=== PATIENT | female | born 1995 | race Caucasian/White ===

== ENCOUNTER 2020-04-05 21:32 | Emergency (ER) | payer SELFPAY ==
[~2020-04-05] VITALS: Ht 160 cm; Wt 79.5 kg
[2020-04-05 21:38] VITALS: Ht 160 cm; Wt 79.5 kg
[2020-04-05 22:31] VITALS: BP 128/82
== END 2020-04-05 22:32 | disposition home or self-care (01) ==
LOC: D.ER 21:32
DX: Z71.1 Person with feared health complaint in whom no diagnosis is made (principal); W46.1XXA Contact with contaminated hypodermic needle, initial encounter

== ENCOUNTER 2020-04-16 21:46 | Emergency (ER) | payer SELFPAY ==
[~2020-04-16] VITALS: Ht 160 cm; Wt 70.9 kg
[2020-04-16 21:54] VITALS: Ht 160 cm; Wt 70.9 kg
[2020-04-16 22:12] LABS: BASOPHILS 0.3 % (0-2); EOSINOPHILS 1.6 % (0-7); HEMATOCRIT 37.9 % (36.0-48.0); HEMOGLOBIN 12.8 g/dL (12-16); IMMATURE GRANULOCYTES 0.1 % (0-5); LYMPHOCYTES 16.5 % (15-50); MCH 30.3 pg (26.0-34.0); MCHC 33.8 g/dL (31.0-37.0); MCV 89.6 fL (80.0-100.0); MEAN PLATELET VOLUME 9.1 fL (7.4-10.4); MONOCYTES 6.6 % (2-11); NEUTROPHILS 74.9 % (40-80); PLATELET COUNT 244 10x3/uL (130-400); RBC 4.23 10x6/uL (4.00-5.40); RDW 12.8 % (11.5-14.5); WBC 7.4 10x3/uL (4.8-10.8)
[2020-04-16 22:27] LABS: HCG SERUM NEGATIVE (NEGATIVE)
[2020-04-16 22:30] LABS: AMYLASE - SERUM 46 U/L (25-115); LIPASE 120 U/L (73-393)
[2020-04-16 22:34] LABS: TROPONIN-I < 0.017 ng/mL (0.000-0.060)
[2020-04-16 23:14] LABS: ALBUMIN 3.8 g/dL (3.4-5.0); ALKALINE PHOSPHATASE 78 U/L (30-120); ALT (SGPT) 43 U/L (10-68); CALC OSMOLALITY 274 mosm/kg (275-300); CALCIUM 8.8 mg/dL (8.5-10.1); CARBON DIOXIDE 24.5 mmol/L (21.0-32.0); CHLORIDE - SERUM 104 mmol/L (98-107); CREATININE - SERUM 0.8 mg/dL (0.6-1.3); GLUCOSE 91 mg/dL (74-106); POTASSIUM - SERUM 3.2 mmol/L (3.5-5.1); PROTEIN - SERUM 7.1 g/dL (6.4-8.2); SODIUM 138 mmol/L (136-145); UREA NITROGEN 9 mg/dL (7-18); eGFR NON AFRICAN AMERICAN > 90 mL/min (90-120)
[2020-04-16 23:32] LABS: BILIRUBIN NEGATIVE (NEGATIVE); GLUCOSE NEGATIVE (NEGATIVE); KETONE MODERATE mg/dL (NEGATIVE); NITRITE NEGATIVE (NEGATIVE); UROBILINOGEN NORMAL (NORMAL)
[2020-04-16 23:33] LABS: BACTERIA FEW /hpf (NEGATIVE); EPITHELIAL CELLS 0-5 /hpf (0-5); RED CELLS - URINE 0-5 /hpf (0-5); WHITE CELLS - URINE 0-5 /hpf (NEGATIVE)
[2020-04-17] MEDS ORDERED: LOMOTIL 2.5-0.1 EAC1 PO (00:10)
[2020-04-17] MEDS ORDERED: PHENERGAN25 M1 PO (00:10)
[2020-04-17 00:40] VITALS: BP 130/77
== END 2020-04-17 00:40 | disposition home or self-care (01) ==
LOC: D.ER 21:46
PROVIDERS: Emergency Medicine
DX: A08.4 Viral intestinal infection, unspecified (principal); R10.11 Right upper quadrant pain; R10.12 Left upper quadrant pain; R19.7 Diarrhea, unspecified